=== PATIENT | male | born 1990 | race Caucasian/White ===

== ENCOUNTER 2023-11-28 12:37 | Emergency (ER) | payer OTHER ==
[2023-11-28] MEDS ORDERED: Famotidine/PF 20 mg/2ml Vial ONE (13:05)
[2023-11-28] MEDS ORDERED: Ipratropium/Albuterol 3 ML NEB ONE (13:07)
== END 2023-11-28 16:15 | disposition home or self-care (01) ==
LOC: CSHERS 12:37
DX: T78.2XXA Anaphylactic shock, unspecified, initial encounter (principal); F17.290 Nicotine dependence, other tobacco product, uncomplicated
CPT/HCPCS: 96374; J7620; S0028